=== PATIENT | female | born 1975 | race Caucasian/White ===

== ENCOUNTER 2019-01-05 14:44 | Emergency (ER) | payer BC, OTHER ==
[2019-01-05 15:44] VITALS: BP 118/68
--- NOTE | 2019-01-05 16:18 | UC ---
Complaint Female HPI - HPI Summary HPI Summary: 43 -year-old female who had sudden onset of left sided pelvic/abdominal pain radiating around to the left side of her back. She denies any urinary symptoms , no abnormal vaginal discharge, she has one sexual partner. - History Of Current Complaint Chief Complaint: UCAbdominalPain Stated Complaint: LOW BACK/PELVIC PAIN Time Seen by Provider: 01/05/19 14:54 Hx Obtained From: Patient Hx Last Menstrual Period: UTERINE ABLATION, DOES NOT HAVE PERIODS ?: No Onset/Duration: Sudden Onset Timing: Constant Severity Initially: Moderate Severity Currently: Mild Pain Intensity: 5 Character: Sharp - Sharp pain which radiates around to her left back. No history of kidney stones. Aggravating Factor(s): Nothing Alleviating Factor(s): Nothing Associated Signs And Symptoms: Positive: Back Pain. Negative: Vaginal Bleeding/ Discharge, Vaginal Discharge - Allergies/Home Medications Allergies/Adverse Reactions: Allergies Allergy/AdvReac Type Severity Reaction Status Date / Time shellfish derived Allergy Severe Anaphylatic Verified 01/05/19 15:29 Shock codeine Allergy Unknown Rash Verified 01/05/19 15:29 Home Medications: Home Medications Atorvastatin* [Lipitor*] 10 mg PO DAILY 01/05/19 [History Confirmed 01/05/19] Flecainide TAB(NF) 50 mg PO BID 01/05/19 [History Confirmed 01/05/19] Metoprolol Succinate XL TAB* [Toprol XL TAB*] 100 mg PO DAILY 01/05/19 [History Confirmed 01/05/19] Potassium Chlor TAB* [Klor Con ER TAB*] 10 meq PO DAILY 01/05/19 [History Confirmed 01/05/19] PMH/Surg Hx/FS Hx/Imm Hx Previously Healthy: Yes - Surgical History Surgical History: Yes Surgery Procedure, Year, and Place: . UTERINE ABLASION - Family History Known Family History: Negative: Cardiac Disease, Hypertension, Diabetes - Social History Alcohol Use: None Substance Use Type: None Smoking Status (MU): Former Smoker When Did the Patient Quit Smoking/Using Tobacco: 5 years ago - Immunization History Most Recent Influenza Vaccination: Fall 2013 Review of Systems All Other Systems Reviewed And Are Negative: Yes Genitourinary: Positive: Negative - Patient states pain radiates from her left pelvic area around to her back and shoots down her hip. Is Patient Immunocompromised?: No Physical Exam Triage Information Reviewed: Yes Appearance: Well-Appearing, No Pain Distress, Well-Nourished Vital Signs: Initial Vital Signs Temp 99.1 F 01/05/19 15:35 Pulse 73 01/05/19 15:35 Resp 16 01/05/19 15:35 BP 118/68 01/05/19 15:35 Pulse Ox 100 01/05/19 15:35 Vital Signs Reviewed: Yes Eye Exam: Normal ENT Exam: Normal Neck exam: Normal Respiratory Exam: Normal Cardiovascular Exam: Normal Abdomen Description: Positive: No Organomegaly, Soft - Very minimal tenderness on palpation to the left pelvic area. No CVA tenderness.. Negative: CVA Tenderness (R), CVA Tenderness (L), Distended, Guarding, Hepatomegaly, Splenomegaly Bowel Sounds: Positive: Present Musculoskeletal Exam: Normal Neurological Exam: Normal Psychological Exam: Normal Skin Exam: Normal Complaint Female Dx - Course Course Of Treatment: Patient refuses pain medicine early in her visit here and just prior to discharge. Patient also preferred not to have a pelvic exam done stating that she is monogamous and has had no abnormal vaginal discharge and is very sure she does not have a pelvic infection Urinalysis 1+ ketones otherwise negative. (Patient is on the keto diet). Urine hCG is negative. CT/Abdomen without contrast: FINDINGS: Evaluation is limited due to the lack of intravenous contrast. This limits evaluation of the solid organs and vasculature. LUNG BASES: The lung bases are clear. LIVER: The liver is normal in shape, size, contour, and attenuation. BILE DUCTS: There is no intrahepatic or extrahepatic biliary dilatation. GALLBLADDER: The gallbladder is normal, without pericholecystic inflammatory change. PANCREAS: The pancreas is normal, without mass or ductal dilatation. SPLEEN: Normal in size and appearance. UPPER GI TRACT: Evaluation of the gastrointestinal tract is limited by incomplete gastric distention. The upper GI tract is unremarkable. SMALL BOWEL AND MESENTERY: The small bowel is normal in contour, course, and caliber. There is no obstruction or dilatation. COLON: The colon is normal in contour, course, caliber. There is no pericolonic inflammatory change. There is large amount of stool within the rectum. The appendix is not clearly visualized. There is no appreciable inflammatory change within the right lower quadrant. ADRENALS: Normal bilaterally. KIDNEYS: The kidneys are normal in shape, size, contour, and axis. There is no hydronephrosis or nephrolithiasis. BLADDER: The bladder is smooth in contour. PELVIC ORGANS: The uterus and adnexa are grossly normal for technique. AORTA: The aorta is normal. IVC: Unremarkable LYMPH NODES: There is no lymphadenopathy by size criteria. ABDOMINAL WALL: There is no evidence for abdominal wall hernia. BONES AND SOFT TISSUES: Unremarkable OTHER: None IMPRESSION: NO HYDRONEPHROSIS OR NEPHROLITHIASIS. The patient refuses ambulance transport and would like to drive herself to the emergency department. She is alert and stable. A DVD of her CAT scan was sent along with her as well as results from her urinalysis and urine hCG. As discharge ambulatory to follow-up there. The patient needs a pelvic sonogram which is not available here at this time - Differential Dx/Diagnosis Provider Diagnosis: Pelvic pain Discharge - Sign-Out/Discharge Documenting (check all that apply): Patient Departure All imaging exams completed and their final reports reviewed: Yes - Discharge Plan Condition: Fair Disposition: HOME-RECOMMEND TO ED Patient Education Materials: Pelvic Pain in Women (ED) Referrals: Rhiannon CORDOVA,Anastasiia Park [Primary Care Provider] - Additional Instructions: It is recommended that you follow-up in the emergency room this evening for further evaluation of the pelvic pain. - Billing Disposition and Condition Condition: FAIR Disposition: Home-Recommend to ED
== END 2019-01-05 17:38 | disposition home health service (06) ==
LOC: UCCORT 14:44
DX: R10.2 Pelvic and perineal pain (principal); Z87.891 Personal history of nicotine dependence; Z88.5 Allergy status to narcotic agent; Z91.013 Allergy to seafood
CPT/HCPCS: 74176; 81003; 84702; 99212; G0463